=== PATIENT | male | born 1975 | race Caucasian/White ===

== ENCOUNTER 2019-03-05 20:45 | Outpatient (CLI) | payer OTHER | END 2019-03-05 20:46 | disposition critical access hospital (66) | LOC: EMS 20:45 | PROVIDERS: ATTEND Surgery | DX: S49.92XA Unspecified injury of left shoulder and upper arm, initial encounter (principal); S89.92XA Unspecified injury of left lower leg, initial encounter; V28.4XXA Motorcycle driver injured in noncollision transport accident in traffic accident, initial encounter; Y92.413 State road as the place of occurrence of the external cause | CPT/HCPCS: A0425; A0427 ==

== ENCOUNTER 2019-03-05 20:55 | Emergency (ER) | payer OTHER ==
[2019-03-05] MEDS ORDERED: HYDROmorphone 2 MG/ML VIAL IVP STA (21:07)
[2019-03-05] MEDS ORDERED: SODIUM CHLORIDE 0.9% 1,000 ML IV ONE (21:07)
[2019-03-05] MEDS ORDERED: KETOROLAC 30 MG/ML VIAL IVP STA (21:07)
[2019-03-05] MEDS ORDERED: LIDOCAINE JELLY 2% 5 ML TUBE TOP STA (21:09)
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
[2019-03-05] MEDS ORDERED: HYDROcod/ACET 5/325 Prepack 4 PO STA (22:31)
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
[2019-03-05] MEDS ORDERED: BACITRACIN OINT TOP ONE (22:41)
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
[2019-03-06 00:20] VITALS: BP 116/80
== END 2019-03-06 00:28 | disposition home or self-care (01) ==
LOC: ED 20:55
DX: S92.312A Displaced fracture of first metatarsal bone, left foot, initial encounter for closed fracture (principal); S46.912A Strain of unspecified muscle, fascia and tendon at shoulder and upper arm level, left arm, initial encounter; S80.02XA Contusion of left knee, initial encounter; S80.212A Abrasion, left knee, initial encounter; S70.212A Abrasion, left hip, initial encounter; S50.312A Abrasion of left elbow, initial encounter; V28.0XXA Motorcycle driver injured in noncollision transport accident in nontraffic accident, initial encounter; Y92.410 Unspecified street and highway as the place of occurrence of the external cause
CPT/HCPCS: 73030; 73562; 73630; 96361; 96374; 99284; A9270; J1170; J3490